=== PATIENT | female | born 1995 | race Caucasian/White ===

== ENCOUNTER 2017-12-17 02:47 | Emergency (ER) | payer SELFPAY, OTHER | END 2017-12-17 03:22 | disposition home or self-care (01) | LOC: FTE 02:47 | DX: J06.9 Acute upper respiratory infection, unspecified (principal); Z87.891 Personal history of nicotine dependence | CPT/HCPCS: 99283 ==

== ENCOUNTER 2017-12-25 01:20 | Emergency (ER) | payer MEDICAID | END 2017-12-25 02:03 | disposition home or self-care (01) | LOC: FTE 01:20 | DX: J20.9 Acute bronchitis, unspecified (principal); Z87.891 Personal history of nicotine dependence | CPT/HCPCS: 99284; Z7502 ==

== ENCOUNTER 2018-05-17 00:44 | Emergency (ER) | payer SELFPAY, MEDICAID ==
[2018-05-17] MEDS: LIDOCAINE 1% (MPF) 5 ML VIAL INJ ×2 (01:49)
== END 2018-05-17 02:14 | disposition home or self-care (01) ==
LOC: FTE 00:44
DX: S61.210A Laceration without foreign body of right index finger without damage to nail, initial encounter (principal); W26.8XXA Contact with other sharp object(s), not elsewhere classified, initial encounter; Y92.9 Unspecified place or not applicable; Z87.891 Personal history of nicotine dependence
CPT/HCPCS: 12001; 99282-25

== ENCOUNTER 2018-05-23 22:50 | Emergency (ER) | payer SELFPAY | END 2018-05-24 00:37 | disposition home or self-care (01) | LOC: FTE 22:50 | DX: Z48.01 Encounter for change or removal of surgical wound dressing (principal); F17.210 Nicotine dependence, cigarettes, uncomplicated | CPT/HCPCS: 99281 ==

== ENCOUNTER 2018-05-30 20:56 | Emergency (ER) | payer SELFPAY | END 2018-05-30 23:40 | disposition left against medical advice (07) | LOC: FTE 20:56 | DX: Z53.21 Procedure and treatment not carried out due to patient leaving prior to being seen by health care provider (principal) ==

== ENCOUNTER 2018-06-06 00:44 | Emergency (ER) | payer SELFPAY | END 2018-06-06 03:54 | disposition home or self-care (01) | LOC: FTE 00:44 | DX: R05 Cough (principal); F17.210 Nicotine dependence, cigarettes, uncomplicated; Z48.01 Encounter for change or removal of surgical wound dressing | CPT/HCPCS: 99283 ==